=== PATIENT | male | born 1980 | race Asian ===

== ENCOUNTER 2024-12-18 10:29 | Emergency (ER) | payer MEDICAID, OTHER ==
[~2024-12-18] VITALS: Ht 170.2 cm; Wt 90.5 kg
[2024-12-18 10:49] VITALS: TEMP 98.1
[2024-12-18 10:59] LABS: COVID AG,FIA SOURCE NASAL SWAB
[2024-12-18 11:00] LABS: GLUCOMETER DEV NAME(LOC) ER.7; GLUCOSE,POINT OF CARE 137 MG/DL (70-110)
[2024-12-18 11:23] LABS: SARS-COV2 (COVID) ANTIGEN,FIA Negative (Negative)
[2024-12-18 11:24] LABS: INFLUENZA TYPE A NEGATIVE FOR TYPE A (NEGATIVE); INFLUENZA TYPE B NEGATIVE FOR TYPE B (NEGATIVE)
[2024-12-18 12:15] VITALS: BP 137/88; PULSE 98; RESP 16; O2SAT 98
[2024-12-18] MEDS ORDERED: GUAIF600 PO (12:31)
[2024-12-18] MEDS ORDERED: BENZ-227 PO (12:31)
[2024-12-18] MEDS ORDERED: GUAI100L96 PO (12:31)
== END 2024-12-18 12:39 | disposition home or self-care (01) ==
LOC: EMS 10:34
DX: J40 Bronchitis, not specified as acute or chronic (principal); I10 Essential (primary) hypertension; E11.9 Type 2 diabetes mellitus without complications; Z20.822 Contact with and (suspected) exposure to COVID-19
CPT/HCPCS: 71046; 82962; 87804; 99284